=== PATIENT | female | born 2005 | race Caucasian/White ===

== ENCOUNTER 2024-03-29 14:18 | Emergency (ER) | payer BC, MEDICAID, SELFPAY ==
[2024-03-29 14:21] VITALS: BP 120/75; PULSE 119; RESP 18; TEMP 36.9; O2SAT 98; BMI 25.1
--- NOTE | 2024-03-29 14:46 | ED_ITS ---
HPI - Back Pain/Injury General: Chief Complaint: Back Pain/Injury Stated Complaint: low back pain Time Seen by Provider: 03/29/24 14:30 Source: patient Mode of arrival: ambulatory Limitations: no limitations History of Present Illness: Patient is a 18-year-old female presents to ED today with a complaint of lower back pain. She states approximately a week and a half ago she was lifting something heavy when she heard a pop to her lower back and has had discomfort since. She does report previous similar pains. She feels like her pain radiates into the back of her posterior thighs. She is ambulatory here without difficulty or assistance. She denies saddle anesthesia. She is not having any issues with fecal incontinence or urinary retention. Denies IV drug use. She has not been running fevers. MD elicited complaint: back pain Pertinent past history: prior back pain Onset (ago): day(s) Timing: constant Severity: moderate Similar Symptoms Previously: Yes Location: lumbar spine Radiation: left upper leg and right upper leg Exacerbating factors: movement, walking and lifting Relieving factors: none Associated symptoms: Reports no associated symptoms; Deny abdominal pain, chills, difficulty walking, dysuria, fatigue, fever(s) or hematuria Treatments prior to arrival: NSAIDS and acetaminophen Work related injury: No Related Data Previous Rx's Medication Instructions Recorded diclofenac sodium 50 mg 50 mg PO Q12H PRN pain #20 tabs 03/29/24 tablet,delayed release methocarbamol 500 mg tablet 1,000 mg (2 x 500 mg) PO Q8H #30 03/29/24 tabs methylprednisolone 4 mg tablets in See Rx Instructions PO .COMPLEX 03/29/24 a dose pack (Medrol (Deon)) #21 ea Allergies Allergy/AdvReac Type Severity Reaction Status Date / Time No Known Allergies Allergy Verified 03/29/24 14:24 Review of Systems Const: Denies: fever(s), chills, body aches, fatigue or malaise Card: Denies: chest pain Resp: Denies: dyspnea GI: Denies: abdominal pain : Denies: flank pain, dysuria or hematuria Musc: Reports: back pain; Denies: neck pain, extremity pain, extremity swelling, joint pain or joint swelling Skin/Breast: Denies: rash Neuro: Denies: numbness in extremities, weakness in extremities, sensory changes or difficulty walking Physical Exam Const: COMMON NORMALS: no acute distress, patient oriented x3, no limitations, alert and well nourished GENERAL APPEARANCE: cooperative ORIENTATION/CONSCIOUSNESS: Yes awake, Yes oriented to person, Yes oriented to place and Yes oriented to time GI: COMMON NORMALS: Normal to inspection, nondistended, normoactive bowel sounds present, Soft to palpation, non-tender and no masses PALPATION: Yes Soft to palpation : COMMON NORMALS: Yes no CVA tenderness BLADDER/KIDNEY EXAM: Yes no CVA tenderness Back/Pelvis: COMMON NORMALS: no CVA tenderness THORACIC SPINE/UPPER BACK: Yes thoracic ROM normal, No thoracic spinal tenderness, No paraspinal muscle tenderness and No paraspinal muscle spasm LUMBAR SPINE/LOWER BACK: Yes lumbar spinal tenderness, Yes paraspinal muscle tenderness, No paraspinal muscle spasm, No mass present and Yes straight leg raise negative bilaterally PELVIS: Yes buttocks normal and No sciatic notch tenderness SACROILIAC JOINTS: Yes SI joints normal SACRUM: no tenderness COCCYX: no tenderness Extremity: COMMON NORMALS: normal to inspection, capillary refill normal, no clubbing, cyanosis or edema, no calf tenderness and no pedal edema GENERAL: Yes normal exam except as noted Neuro: COMMON NORMALS: patient oriented x3, moves all extremities, no focal motor deficits, no sensory deficits noted and gait normal SENSORIUM/ORIENTATION: Yes alert, Yes oriented to person, Yes oriented to place and Yes oriented to time MOTOR EXAM: 5/5 motor strength present throughout Skin: COMMON NORMALS: no rashes or lesions noted GENERAL SKIN EXAM: no rashes or lesions noted Course Vital Signs: Vital signs: Vital Signs Temperature 98.4 F 03/29/24 14:21 Pulse Rate 110 H 03/29/24 14:51 Respiratory Rate 16 03/29/24 14:51 Blood Pressure 120/75 03/29/24 14:21 Pulse Oximetry 99 03/29/24 14:51 Oxygen Delivery Me thod Room Air 03/29/24 14:21 MDM - Back Pain/Injury Medical Decision Making Patient will be treated with anti-inflammatories, steroids, muscle relaxers. Recommend follow-up with primary care later this week if symptoms do not seem to be improving. Return to ED precautions given. No radiology studies performed this visit Discharge Plan Discharge Patient Disposition: Home Clinical Impression: Lumbar radiculopathy Condition: Stable Prescriptions: New methocarbamol 500 mg tablet 1,000 mg PO Q8H Qty: 30 0RF diclofenac sodium 50 mg tablet,delayed release (DR/EC) 50 mg PO Q12H PRN (Reason: pain) Qty: 20 0RF Medrol (Deon) 4 mg tablets,dose pack See Rx Instructions .ROUTE .COMPLEX Qty: 21 0RF Rx Instructions: orally per package directions Discharge Orders: Discharge ED (Routine); Ordered 03/29/24 Ordered By: Kirstin Biswas Patient Instructions: Lumbar Disc Herniation (ED), Low Back Strain (ED), Lumbar Radiculopathy (ED) Activity Restrictions/Additional Instructions: As we discussed please follow-up with your primary care provider in a week or so if symptoms do not seem to be improving. You may return to the emergency department for worsening back pain, inability to ambulate, worsening pain or numbness to your legs, inability to urinate, fecal incontinence, or any other concerns you may have. Hope you begin to feel better soon. Coding Level of Care Code ED Pharmacy Order Entry Technician for Carolann Dubon
[2024-03-29 14:51] VITALS: PULSE 110; RESP 16; O2SAT 99
[2024-03-29] MEDS: dexamethasone 10 mg/mL INJ 8 MG IM (14:59)
[2024-03-29] MEDS: ketorolac 60 mg/2 mL INJ IM (14:59)
== END 2024-03-29 15:13 | disposition home or self-care (01) ==
PROVIDERS: Emergency Provider Physician Assistant
DX: M54.16 Radiculopathy, lumbar region (principal)
CPT/HCPCS: 96372; 99284; J1100; J1885

== ENCOUNTER 2024-06-09 11:42 | Outpatient (CLI) | payer BC, SELFPAY ==
--- NOTE | 2024-06-09 11:44 | MR_ITS ---
WS: [id number] MRI LUMBAR SPINE NONCONTRAST HISTORY: LUMBAGO WITH SCIATICA COMPARISON: None available. TECHNIQUE: Sagittal and axial multisequence imaging is submitted. Normal lumbar alignment with no compression fractures or marrow edema. Mild disc desiccation at L4-5 and L5-S1. Conus terminates normally at L1-2 disc level. L1-L2: Normal. L2-L3: Mild facet arthritis. No stenosis. L3-L4: Mild facet arthritis. No stenosis. L4-L5: Large central disc protrusion with a width of 1.8 cm extends over a length of 1.1 cm. There is a deformity and displacement of the thecal sac with extension into the subarticular recesses. Displa cement of the nerve roots posteriorly. There is contact on both traversing L5 nerve roots. Only mild extension into the proximal neural foramen. Significant central with bilateral subarticular recess st enosis. Mild foraminal stenosis. L5-S1: Additional central extruded disc. There is a central disc which is extruded cephalad to the di sc level by 0.9 cm. Width of this disc is 1.1 cm. Mild deformity of the ventral thecal sac with sligh t contact on the LEFT S1 nerve root. Mild LEFT foraminal stenosis. MR/MR lumbar spine wo con* [id number] IMPRESSION: 1. L4-5: Large central and subarticular recess disc protrusion at L4-5. Deform ity and stenosis of the central canal with displacement of the traversing L5 ne rve roots. Mild foraminal stenosis at L4-5. 2. L5-S1: Moderate size central disc extrusion extends cephalad to the disc le adolfo. Mild deformity of the ventral thecal sac and slight contact on the LEFT S1 nerve root. Mild LEFT foraminal stenosis.
== END 2024-06-09 11:43 | disposition home or self-care (01) ==
LOC: RAD 11:43
PROVIDERS: PCP Family Medicine; Visit Provider Family Medicine
DX: M51.26 Other intervertebral disc displacement, lumbar region (principal); M54.30 Sciatica, unspecified side
CPT/HCPCS: 72148

== ENCOUNTER → 2024-06-24 14:49 | Outpatient (BNVA) | payer BC, MEDICAID, SELFPAY | PROVIDERS: PCP Family Medicine; Visit Provider Orthopaedic Surgery | DX: M54.9 Dorsalgia, unspecified (principal) | CPT/HCPCS: 36415; 72110; 80053; 81001; 85025 ==

== ENCOUNTER 2024-07-07 09:30 | Day surgery (SDC) | payer BC, MEDICAID, SELFPAY ==
[2024-07-07] VITALS (11 sets, daily range): BP systolic 91–107; BP diastolic 40–74; PULSE 58–79; RESP 16–18; TEMP 36.2–36.8; O2SAT 97–100; BMI 33.4
--- NOTE | 2024-07-07 06:58 | XR_ITS ---
WS: [id number] Exam: XR lumbar spine 1V [id number] Date/Time of Exam: 07/07/2024 6:58 AM Reason For Exam: or pic, decompression 2 anterior posterior images of the lower lumbar spine are submitted for evaluation. The images were o btained for preoperative localization purposes.
[2024-07-07] MEDS: sodium chloride 0.9% 1,000 ML 30 ML IV (10:20)
--- NOTE | 2024-07-07 10:35 | W.PM.OPSUD ---
Surgery/Procedure H&P Update DATE OF PROCEDURE: July 07, 2024 DATE H&P PERFORMED: 06/24/24 H&P UPDATE INFORMATION: I have reviewed H&P completed within last 30 days, I have examined patient prior to procedure and No changes to prior documentation PLANNED PROCEDURE: Operation Date: 07/07/24 11:40 Proposed Procedures p Lumbar Spine Decompression(Not Applicable) - Shaheen East DO
--- NOTE | 2024-07-07 12:03 | ANES.PREANE2 ---
Pre-Anesthetic Assessment Height/Weight: Height 1.64 m Weight 89.811 kg Temp Pulse Resp BP Pulse Ox O2 Del Method 98.2 F 70 18 98/67 100 Room Air 07/07/24 10:07 07/07/24 10:07 07/07/24 10:07 07/07/24 10:07 07/07/24 10:07 07/07/24 10:14 Operation Date: 07/07/24 11:40 Proposed Procedures p Lumbar Spine Decompression(Not Applicable) - Shaheen East, DO Familial anesthetic complications: None Was Beta Vaishnavi taken within 24 hours: N/A Was Clonidine taken within 24 hours: N/A Last intake: Intake Last Liquid Date 07/06/24 Last Liquid Time 18:00 Last Solid Date 07/06/24 Last Solid Time 18:00 Social No alcohol and No tobacco Exam alert, oriented x 3, clear to auscultation bilaterally and regular rate & rhythm Airway Mallampati: Class II Dentition: full CV/HEM Arrythmia (tachy) Anesthetic Plan ASA status: 2 Anesthesia: General Risk of > 500 ml blood loss (7ml/kg in children): No Medications/Allergies Home Medications Medication Instructions Recorded Confirmed Last Taken Type gabapentin 300 mg capsule 300 mg PO TID 06/24/24 07/06/24 07/06/24 History metoprolol tartrate 50 mg tablet 50 mg PO DAILY 06/24/24 07/06/24 07/07/24 History trazodone 50 mg tablet 100 mg (2 x 50 mg) PO .HS PRN 07/01/24 07/06/24 07/05/24 Rx insomnia #60 tabs venlafaxine 150 mg 150 mg PO DAILY #30 caps 07/01/24 07/06/24 07/06/24 Rx capsule,extended release 24 hr (Effexor XR) venlafaxine 75 mg capsule,extended 75 mg PO DAILY #30 caps 07/01/24 07/06/24 07/06/24 Rx release 24 hr (Effexor XR) Allergies Allergy/AdvReac Type Severity Reaction Status Date / Time No Known Allergies Allergy Verified 07/06/24 13:13 Current Medications Generic Name Dose Route Start Last Admin Trade Name Freq PRN Reason Stop Dose Admin Sodium Chloride 1,000 mls @ 30 mls/hr 07/07/24 10:00 07/07/24 10:20 Sodium Chloride 0.9% IV 07/08/24 09:59 30 mls/hr .Q24H KATARINA Administration PFSH Anesthesia Medical History (Updated 07/01/24 @ 14:06 by Eliot Merino MD) Psychiatric care Social History Smoking and tobacco/nicotine status: never used tobacco/nicotine Female Reproductive History Date of last menstrual period: 06/08/24 Data Anesthesia Cardiac Studies: No Data to Display
[2024-07-07] MEDS: ceFAZolin 2,000 mg SDV 2000 MG IVP (12:15)
[2024-07-07] MEDS: lidocaine-epi 1% PF 1:200,000 30 mL SDV INJECTION (12:55)
--- NOTE | 2024-07-07 14:06 | PM.OP ---
Operative Report Date of procedure: July 07, 2024 Pre-op diagnosis: 1. Left-sided lumbar 4/5 herniated disc with radiculopathy. 2. Left-sided lumbar 5/S1 herniated disc with radiculopathy Post-op diagnosis: same Procedure done: 1. L4-5 laminectomy with partial facetectomy and discectomy on the left 2. L5-S1 laminectomy with partial facetectomy and discectomy on the left Surgeon: Shaheen East DO Estimated blood loss (mL): 25 Procedure: 1. L4-5 laminectomy with partial facetectomy and discectomy on the left 2. L5-S1 laminectomy with partial facetectomy and discectomy on the left Patient is brought to the operative suite. After undergoing anesthesia they are placed in the prone position. All areas of impingement are well padded. Patient is then prepped and draped in the normal sterile fashion. A skin incision is made over the L4/5 level. This is confirmed under c-arm guidance. A series of dilators are passed and the tubular retractor is docked on the L4 lamina. A bovie is used to clear the soft tissue off the lamina and the L 4/5 facet joint. A high speed sunil is then used to perform the laminectomy and take down the medial aspect of the L 4/5 facet joint. A kerrison rongeure was then used to take down the remaining lamina and smooth the edge of the laminectomy up to the point where the ligamentum flavum attaches. Attention was then brought to the medial aspect of the facet joint. The remaining medial aspect of the superior and inferior aspect of the facet joint were taken down with the kerrison from the pedicle of L4 to L 5. The facet joint had significant hypertrophy. Attention was then brought to the Ligamentum Flavum. The ligament was taken down from the lamina of L4 to L5 and out medially to the remaining facet joint. The ligament was thick. The dura was then exposed. The dura was in good repair. The L5 nerve root was reflected medially. The disc space identified a sharp knife is used to cut open the annulus. Multiple fragments of disc were removed. The disc was irrigated multiple times more disc fragments were removed. All free fragments were felt to be removed. The L4 nerve was then traced with a curette out the L4/5 foramen and found to be adequately decompressed. The L5 nerve was traced with a curette around the L5 pedicle. The lateral recess was opened with a kerrison helping to further decompress the L5 nerve. Wound is then irrigated copiously with saline and surgiflo is used to stop any bleeding. The tubular retractor is removed A skin incision is made over the L5/S1 level. This is confirmed under c-arm guidance. A series of dilators are passed and the tubular retractor is docked on the L5 lamina. A bovie is used to clear the soft tissue off the lamina and the L 5/S1 facet joint. A high speed sunil is then used to perform the laminectomy and take down the medial aspect of the L 5/S1 facet joint. A kerrison rongeure was then used to take down the remaining lamina and smooth the edge of the laminectomy up to the point where the ligamentum flavum attaches. Attention was then brought to the medial aspect of the facet joint. The remaining medial aspect of the superior and inferior aspect of the facet joint were taken down with the kerrison from the pedicle of L5 to S1. The facet joint had significant hypertrophy. Attention was then brought to the Ligamentum Flavum. The ligament was taken down from the lamina of L5 to S1 and out medially to the remaining facet joint. The ligament was thick. The dura was then exposed. The dura was in good repair. The disc space identified a sharp knife is used to cut open the annulus. Multiple fragments of disc were removed. The disc was irrigated multiple times more disc fragments were removed. All free fragments were felt to be removed. The L5 nerve was then traced with a curette out the L5/S1 foramen and found to be adequately decompressed. The S1 nerve was traced with a curette around the S1 pedicle. The lateral recess was opened with a kerrison helping to further decompress the S1 nerve. Wound is then irrigated copiously with saline and surgiflo is used to stop any bleeding. The tubular retractor is removed and the wound is closed with vicryl and monocryl suture. Glue is then used to protect the wound. A sterile dressing is then placed. Patient was then placed in the supine position and transferred to the PACU in stable condition.
[2024-07-07] MEDS: HYDROcodone-acetaminophen 10-325 mg Tablet 1 TAB PO (15:00)
--- NOTE | 2024-07-07 15:20 | ANE.PACU2 ---
Inpatient post-anesthesia follow up: Airway intact: Yes Vital signs: Temperature 97.7 F Pulse Rate 76 Respiratory Rate 18 Blood Pressure 98/41 Pulse Oximetry 100 Oxygen Delivery Me thod Room Air Oxygen Flow Rate 8 Fraction of Inspir ed Oxygen Hydration adequate: Yes Nausea and vomiting: No Pain level: 1 Mental status: Baseline
[2024-07-08 11:03] LABS: OR HCG Qualitative Urine Negative (Negative)
== END 2024-07-07 15:20 | disposition home or self-care (01) ==
PROVIDERS: Anesthesiology; PCP Family Medicine; Visit Provider Orthopaedic Surgery
PROC: (CPT 63005; principal; 2024-07-07 11:40)
DX: M51.26 Other intervertebral disc displacement, lumbar region (principal)
CPT/HCPCS: 63030; 63035; 72020; 76000; 81025; J0690; J2250; J2704; J3010; J7030

== ENCOUNTER → 2024-07-27 11:13 | Outpatient (BNVA) | payer BC, SELFPAY | PROVIDERS: PCP Family Medicine; Visit Provider Internal Medicine Cardiovascular Disease | DX: R07.9 Chest pain, unspecified (principal); R06.02 Shortness of breath; N18.9 Chronic kidney disease, unspecified | CPT/HCPCS: 36415; 80048; 84443; 93005 ==

== ENCOUNTER 2024-08-18 22:41 | Emergency (ER) | payer BC, MEDICAID, SELFPAY ==
[2024-08-18 22:42] VITALS: BP 129/63; PULSE 89; RESP 16; TEMP 36.8; O2SAT 96; BMI 28.6
--- NOTE | 2024-08-18 22:44 | XRR_ITS ---
PROCEDURE INFORMATION: Exam: XR Right Ankle Exam date and time: 08/18/2024 10:45 PM Age: 19 years old Clinical indication: Pain; Ankle; Right; Additional info: Twisted ankle pain TECHNIQUE: Imaging protocol: Radiologic exam of the right ankle. Views: 3 or more views. COMPARISON: No relevant prior studies available. FINDINGS: Bones/joints: Os supra navicularis. Fragmentation at the dorsal aspect of the talonavicular joint, from prior injury. Soft tissues: Mild soft tissue swelling around the ankle joint. XR/XR ankle RT min 3V* [id number] IMPRESSION: No acute fracture or dislocation.
[2024-08-18 22:53] VITALS: BP 129/63; PULSE 85; O2SAT 97
--- NOTE | 2024-08-18 23:07 | W.ED.EXTPRO ---
HPI - Extremity Problem General: Chief complaint: Extremity Injury, Lower Stated complaint: ANKLE INJURY Time Seen by Provider: 08/18/24 22:44 History of Present Illness: Patient presents to the ER by EMS after stepping on a toy and twisting her ankle. Patient heard a pop. Patient says she previously sprained her ankle in the past and cannot bear weight on it currently. Patient has no other complaints at this time. Related Data Home Medications Medication Instructions Recorded Confirmed gabapentin 300 mg capsule 300 mg PO TID 06/24/24 07/27/24 Previous Rx's Medication Instructions Recorded trazodone 100 mg tablet 200 mg (2 x 100 mg) PO .HS PRN 07/22/24 insomnia #60 tabs venlafaxine 150 mg 150 mg PO DAILY #30 caps 07/22/24 capsule,extended release 24 hr (Effexor XR) venlafaxine 75 mg capsule,extended 75 mg PO DAILY #30 caps 07/22/24 release 24 hr (Effexor XR) cyclobenzaprine 5 mg tablet 5 mg PO TID #10 tabs 07/27/24 metoprolol succinate 50 mg 50 mg PO DAILY #90 tabs 07/27/24 tablet,extended release 24 hr Allergies Allergy/AdvReac Type Severity Reaction Status Date / Time No Known Allergies Allergy Verified 08/18/24 22:44 Review of Systems General: Reports: 10 or more systems reviewed and unremarkable except in HPI and below PFSH ED PFSH: Medical History Psychiatric care Surgical History History of History of back surgery Social History Smoking and tobacco/nicotine status: unknown if used tobacco/nicotine Female Reproductive History: Date of last menstrual period: 08/15/24 Physical Exam Const: COMMON NORMALS: no acute distress, average body habitus, patient oriented x3, no limitations, healthy appearing, alert and well nourished HENMT: COMMON NORMALS: normocephalic, atraumatic, hearing grossly normal bilaterally, external ears normal, Normal external nose present and moist oral mucous membranes HEAD & SCALP: normocephalic and atraumatic NOSE: Normal external nose present EXTERNAL EAR: Yes external ears normal Neck/C-Spine: COMMON NORMALS: no JVD Chest: COMMONS NORMALS: normal inspection of the chest and normal palpation of entire chest wall Resp: COMMON NORMALS: normal respiratory effort, No retractions, No use of accessory muscles and clear to auscultation bilaterally AUSCULTATION: clear to auscultation bilaterally Cardio: COMMON NORMALS: no JVD, regular rate, regular rhythm, S1 normal heart sound present, S2 normal heart sound present, No gallops present (Cardio), No clicks present (Cardio), No murmurs present (Cardio) and No rub (Cardio) RATE: regular rate RHYTHM: regular rhythm HEART SOUNDS: S1 normal heart sound present and S2 normal heart sound present GI: COMMON NORMALS: Normal to inspection, nondistended, normoactive bowel sounds present, Soft to palpation, non-tender, No hepatosplenomegaly present and no masses PALPATION: Yes Soft to palpation and Yes No hepatosplenomegaly present Extremity: NARRATIVE EXTREMITY EXAM: Right ankle minimally tender to palpation, no obvious swelling deformity crepitus noted. Neuro: COMMON NORMALS: patient oriented x3 SENSORIUM/ORIENTATION: Yes alert Course Vital Signs: Vital signs: Vital Signs Temperature 98.2 F 08/18/24 22:42 Pulse Rate 85 08/18/24 22:53 Respiratory Rate 16 08/18/24 22:42 Blood Pressure 129/63 08/18/24 22:53 Pulse Oximetry 97 08/18/24 22:53 Oxygen Delivery Co thod Room Air 08/18/24 22:53 MDM - Extremity (Nontraumatic) Medical Decision Making X-ray performed of right ankle, preliminary read by me is negative for fracture. Patient be discharged home. Medical Records I reviewed the patient's medical records. Lab Data I reviewed the patient's lab results. XR interpretation done by ED provider, pending radiology final review Discharge Plan Discharge Patient Disposition: Home Clinical Impression: Ankle sprain and strain Condition: Stable Prescriptions: No Action metoprolol succinate 50 mg tablet extended release 24 hr 50 mg PO DAILY Qty: 90 3RF gabapentin 300 mg capsule 300 mg PO TID cyclobenzaprine 5 mg tablet 5 mg PO TID Qty: 10 0RF venlafaxine [Effexor XR] 150 mg capsule,extended release 24hr 150 mg PO DAILY Qty: 30 2RF Rx Instructions: Take with a 75 mg for a total of 225 mg venlafaxine [Effexor XR] 75 mg capsule,extended release 24hr 75 mg PO DAILY Qty: 30 2RF trazodone 100 mg tablet 200 mg PO .HS PRN (Reason: insomnia) Qty: 60 2RF Discharge Orders: Discharge ED (Routine); Ordered 08/18/24 Ordered By: Bart Hale Referrals: Francis Tsang MD [Primary Care Provider] - 1 week Patient Instructions: Ankle Sprain (ED) Activity Restrictions/Additional Instructions: The preliminary read on your x-ray of your ankle in the ER was no acute fracture. When the radiologist reads it if he sees anything other than this we will call you otherwise please follow-up with your family practice physician within the next 7 days for further evaluation and treatment. Coding Level of Care Code ED Spun Paste Machine Operator for Carolann Dubon
[2024-08-18 23:25] VITALS: BP 120/60; PULSE 85; O2SAT 97
== END 2024-08-18 23:28 | disposition home or self-care (01) ==
PROVIDERS: Emergency Provider Emergency Medicine; PCP Family Medicine
DX: S93.401A Sprain of unspecified ligament of right ankle, initial encounter (principal); X58.XXXA Exposure to other specified factors, initial encounter
CPT/HCPCS: 73610; 99283; E0114

== ENCOUNTER → 2024-09-09 13:48 | Outpatient (BNVA) | payer BC, MEDICAID, SELFPAY | PROVIDERS: PCP Family Medicine; Visit Provider Podiatrist Foot & Ankle Surgery | DX: M25.571 Pain in right ankle and joints of right foot (principal); M79.671 Pain in right foot | CPT/HCPCS: 73610; 73620; 73630 ==

== ENCOUNTER 2024-09-22 14:46 | Emergency (ER) | payer BC, MEDICAID, SELFPAY ==
[2024-09-22 15:01] VITALS: BP 124/81; PULSE 83; RESP 17; TEMP 36.9; O2SAT 98; BMI 27.2
--- NOTE | 2024-09-22 15:04 | ECG_ITS ---
[facility] 2024[facility]22 Pat Name: Stacy Garcia Department: Room: Gender: Female Knitter Hand: : 2005 Requested By: Chio Aranda Order Number: [id number] MD: Laith Finney M.D. Measurements Intervals [place] Rate: 78 P: 74 IA: 146 QRS: 90 QRSD: 82 T: 25 QT: 389 QTc: 445 Interpretive Statements SINUS RHYTHM WITH SINUS ARRHYTHMIA NONSPECIFIC T-WAVE ABNORMALITY Compared to ECG 07/27/2024 11:18:22 No significant changes Electronically Signed On 09-23-2024 21:56:42 BI MANAGER by Laith Finney M.D. [email or web address]
== END 2024-09-22 18:21 | disposition left against medical advice (07) ==
PROVIDERS: Emergency Provider Family Medicine; PCP Family Medicine
DX: Z53.21 Procedure and treatment not carried out due to patient leaving prior to being seen by health care provider (principal)
CPT/HCPCS: 93005

== ENCOUNTER 2024-12-27 12:28 | Emergency (ER) | payer BC, MEDICAID, SELFPAY ==
[2024-12-27 12:29] VITALS: BP 112/59; PULSE 78; TEMP 36.7; O2SAT 98; BMI 28.2
--- NOTE | 2024-12-27 12:50 | W.ED.FEMALGU ---
HPI - Female Genitourinary General: Chief complaint: Urogenital-Female Stated complaint: abd pain, Time Seen by Provider: 12/27/24 12:31 Source: patient Mode of arrival: ambulatory Limitations: no limitations History of Present Illness: Patient is a 19-year-old female presents to ED today with UTI-like symptoms including dysuria, frequency, urgency, and cloudy/odorous urine. She states symptoms began today. She does have a history of previous UTIs and feels like her symptoms today are similar. Last UTI was a few years ago. She is not complaining of vaginal discharge or pelvic pain. Has a small amount of suprapubic and lower back discomfort. No history of kidney or ureter stones. She arrives in no acute distress with stable vital signs. MD elicited complaint: dysuria and UTI Onset (ago): hour(s) Severity: moderate Female Urogenital Radiation: Suprapubic Vaginal discharge: none Vaginal bleeding: none Urinary symptoms: Dysuria, Foul Smelling Urine, Frequency and Urgency Exacerbating factors: none and urination Relieving factors: none Associated symptoms: Reports no associated symptoms; Deny abdominal pain or nausea Patient : No Related Data Home Medications ?Medication ?Instructions ?Recorded ?Confirmed vitamin with calcium 1 tab PO DAILY 12/27/24 12/27/24 no.72-iron 27 mg-folic acid 1 mg tablet (M-Hardik Plus) venlafaxine 150 mg 150 mg PO DAILY 12/27/24 12/27/24 capsule,extended release 24 hr venlafaxine 75 mg tablet,extended 75 mg PO DAILY 12/27/24 12/27/24 release 24 hr Previous Rx's ?Medication ?Instructions ?Recorded metoprolol succinate 50 mg 50 mg PO DAILY #90 tabs 07/27/24 tablet,extended release 24 hr hydroxyzine HCl 50 mg tablet 100 mg (2 x 50 mg) PO BID PRN 12/13/24 insomnia #60 tabs prazosin 2 mg capsule 2 mg PO .HS #30 caps 12/13/24 trazodone 100 mg tablet 200 mg (2 x 100 mg) PO .HS PRN 12/13/24 insomnia #60 tabs cefdinir 300 mg capsule 300 mg PO BID 10 days #20 caps 12/27/24 Allergies Allergy/AdvReac Type Severity Reaction Status Date / Time No Known Allergies Allergy Verified 12/27/24 12:33 Review of Systems Const: Denies: fever(s), chills, body aches, fatigue or malaise Card: Denies: chest pain Resp: Denies: dyspnea GI: Denies: abdominal pain, nausea, vomiting or diarrhea : Reports: dysuria, urinary frequency and urinary urgency; Denies: flank pain, difficulty voiding, vaginal odor, vaginal bleeding or pelvic pain Musc: Reports: back pain Skin/Breast: Denies: rash PFSH ED PFSH: Medical History Psychiatric care Surgical History History of History of back surgery Social History Smoking and tobacco/nicotine status: former use of tobacco/nicotine Physical Exam Const: COMMON NORMALS: no acute distress, patient oriented x3, no limitations, alert and well nourished GENERAL APPEARANCE: cooperative Resp: COMMON NORMALS: normal respiratory effort and clear to auscultation bilaterally AUSCULTATION: clear to auscultation bilaterally Cardio: COMMON NORMALS: regular rate and regular rhythm RATE: regular rate RHYTHM: regular rhythm GI: COMMON NORMALS: Normal to inspection, nondistended, normoactive bowel sounds present, Soft to palpation, non-tender, No hepatosplenomegaly present and no masses INSPECTION: Yes normal to inspection AUSCULTATION: Yes normoactive bowel sounds PALPATION: Yes Soft to palpation, No Tenderness to palpation present (GI), No Guarding due to palpation present (GI), No Rigid due to palpation and Yes No hepatosplenomegaly present : COMMON NORMALS: Yes no CVA tenderness BLADDER/KIDNEY EXAM: Yes no CVA tenderness Back/Pelvis: COMMON NORMALS: no CVA tenderness OTHER: mild pain across lower back Neuro: COMMON NORMALS: patient oriented x3 SENSORIUM/ORIENTATION: Yes alert Course Vital Signs: Vital signs: Vital Signs Temperature 98.1 F 12/27/24 12:29 Pulse Rate 78 12/27/24 12:29 Blood Pressure 112/59 12/27/24 12:29 Pulse Oximetry 98 12/27/24 12:29 Oxygen Delivery Me thod Room Air 12/27/24 12:29 MDM - Female Medical Decision Making Patient here with complaints of dysuria, frequency, urgency, cloudy/odorous urine. She arrives in no acute distress with stable vital signs. Blood work shows a normal white count. Remainder of blood work is unremarkable. is negative. UA is consistent with acute cystitis with 2+ blood, 3+ leukocyte esterase, greater than 100 WBCs, 4+ bacteria. Will cover with antibiotics. Return to ED precautions discussed. Medical Records I reviewed the patient's medical records. Lab Data I reviewed the patient's lab results. 12/27/24 12:57 12/27/24 12:57 Laboratory Results WBC 10.22 10^3/uL (3.29-11.43) 12/27/24 12:57 RBC 4.36 10^6/uL (3.85-5.65) 12/27/24 12:57 Hgb 13.40 g/dL (11.27-16.99) 12/27/24 12:57 Hct 40.4 % (36-47) 12/27/24 12:57 MCV 92.7 fl (85-98) 12/27/24 12:57 MCH 30.7 pg (27-33) 12/27/24 12:57 MCHC 33.2 g/dL (30-55) 12/27/24 12:57 RDW 13.5 % (12.1-15.1) 12/27/24 12:57 Plt Count 303 10^3/cmm (157-399) 12/27/24 12:57 MPV 8.9 fL (7.4-10.4) 12/27/24 12:57 Neut % (Auto) 79.8 % 12/27/24 12:57 Lymph % (Auto) 13.0 % 12/27/24 12:57 [place] % (Auto) 5.7 % 12/27/24 12:57 Eos % (Auto) 0.9 % 12/27/24 12:57 Baso % (Auto) 0.3 % 12/27/24 12:57 Neut # (Auto) 8.16 10^3/uL (1.8-7.7) H 12/27/24 12:57 Lymph # (Auto) 1.3 10^3/uL (0.8-4.8) 12/27/24 12:57 [place] # (Auto) 0.6 10^3/uL (0.2-0.9) 12/27/24 12:57 Eos # (Auto) 0.1 10^3/uL (0.0-0.8) 12/27/24 12:57 Baso # (Auto) 0.0 10^3/uL (0.0-0.1) 12/27/24 12:57 Nucleated RBC % (auto) 0 % 12/27/24 12:57 Nucleated RBCs # 0.0 /100WBC 12/27/24 12:57 Sodium 141 mmol/L (136-145) 12/27/24 12:57 Potassium 4.1 mmol/L (3.5-5.1) 12/27/24 12:57 Chloride 105 mmol/L (98-107) 12/27/24 12:57 Carbon Dioxide 22 mmol/L (22-29) 12/27/24 12:57 Anion Gap 18.1 (5-19) 12/27/24 12:57 BUN 9 mg/dL (6-20) 12/27/24 12:57 Creatinine 0.5 mg/dL (0.5-0.9) 12/27/24 12:57 GFR Calculation 155.7 mL/min (90-130) H 12/27/24 12:57 Glucose 98 mg/dL (65-115) 12/27/24 12:57 Calculated Osmolality 291 mOsm/kg (285-295) 12/27/24 12:57 Calcium 9.3 mg/dL (8.5-10.5) 12/27/24 12:57 Total Bilirubin 0.3 mg/dL (0.15-1.2) 12/27/24 12:57 AST 19 U/L (0-32) 12/27/24 12:57 ALT 15 U/L (0-33) 12/27/24 12:57 Alkaline Phosphatase 113 U/L (35-105) H 12/27/24 12:57 Total Protein 7.1 g/dL (6.6-8.7) 12/27/24 12:57 Albumin 4.2 g/dL (3.5-5.2) 12/27/24 12:57 Globulin 2.9 g/dL (1.3-4.6) 12/27/24 12:57 Lipase 22 U/L (13-60) 12/27/24 12:57 HCG, Qual Negative (Negative) 12/27/24 12:57 Urine Color Yellow (Yellow) 12/27/24 12:47 Urine Appearance Clear (CLEAR) 12/27/24 12:47 Urine pH 7.0 (5-7) 12/27/24 12:47 Ur Specific [place] 1.015 (1.005-1.030) 12/27/24 12:47 Urine Protein Trace (Negative) A 12/27/24 12:47 Urine Glucose (UA) Negative (Normal) 12/27/24 12:47 Urine Ketones Negative (Negative) 12/27/24 12:47 Urine Blood 2+ (Negative) A 12/27/24 12:47 Urine Nitrate Negative (Negative) 12/27/24 12:47 Urine Bilirubin Negative (Negative) 12/27/24 12:47 Urine Urobilinogen 1.0 mg/dL (Negative) 12/27/24 12:47 Ur Leukocyte Esterase 3+ (Negative) A 12/27/24 12:47 Urine RBC 21-50 /hpf (0-2) H 12/27/24 12:47 Urine WBC >100 /hpf (0-5) H 12/27/24 12:47 Ur Squamous Epith Cells 0-5 /hpf (0-5) 12/27/24 12:47 Amorphous Sediment Not Reportable 12/27/24 12:47 Urine Bacteria 4+ /hpf (NONE) H 12/27/24 12:47 Hyaline Casts 1.65 /lpf 12/27/24 12:47 No radiology studies performed this visit Discharge Plan Discharge Patient Disposition: Home Clinical Impression: Acute cystitis with hematuria Condition: Stable Prescriptions: New cefdinir 300 mg capsule 300 mg PO BID 10 Days Qty: 20 0RF No Action metoprolol succinate 50 mg tablet extended release 24 hr 50 mg PO DAILY Qty: 90 3RF hydroxyzine HCl 50 mg tablet 100 mg PO BID PRN (Reason: insomnia) Qty: 60 2RF trazodone 100 mg tablet 200 mg PO .HS PRN (Reason: insomnia) Qty: 60 2RF prazosin 2 mg capsule 2 mg PO .HS Qty: 30 2RF venlafaxine 150 mg capsule,extended release 24hr 150 mg PO DAILY Rx Instructions: TAKE ONE CAPSULE BY MOUTH DAILY, TAKE WITH 75 MG FOR A TOTAL 225 MG venlafaxine 75 mg Tablet Extended Release 24hr 75 mg PO DAILY Rx Instructions: TAKE ONE CAPSULE BY MOUTH DAILY, TAKE WITH 150 MG FOR A TOTAL 225 MG M-Hardik Plus 27 mg iron- 1 mg tablet 1 tab PO DAILY Discharge Orders: Discharge ED (Routine); Ordered 12/27/24 Ordered By: Kirstin Biswas Referrals: Francis Tsang MD [Primary Care Provider, Family Practice] Patient Instructions: Urinary Tract Infection in Women (DC) Activity Restrictions/Additional Instructions: As we discussed, please fill your antibiotics and start them immediately. You need to seek medical re-evaluation for onset of flank pain, repetitive episodes of vomiting, inability to tolerate your antibiotics, fevers, generally feeling worse or unwell, or any other concerns you may have. Print Language: Mongolian Coding Level of Care Code ED [employer]ider for Carolann Dubon
[2024-12-27 13:01] LABS: Bilirubin Urine Negative (Negative); Blood Urine 2+ (Negative); Glucose Urine UA Negative (Normal); Ketones Urine Negative (Negative); Leukocyte Esterase Urine 3+ (Negative); Nitrate Urine Negative (Negative); Protein Urine Trace (Negative); Specific Gravity, Urine 1.015 (1.005-1.030); Urine Appearance Clear (CLEAR); Urine Color Yellow (Yellow)
[2024-12-27 13:04] LABS: Basophils % 0.3 %; Eosinophils # 0.1 10^3/uL (0.0-0.8); Eosinophils % 0.9 %; Hematocrit 40.4 % (36-47); Lymphocytes # 1.3 10^3/uL (0.8-4.8); Mean Corpuscular HGB Conc 33.2 g/dL (30-55); Mean Corpuscular Hemoglobin 30.7 pg (27-33); Mean Corpuscular Volume 92.7 fl (85-98); Mean Platelet Volume 8.9 fL (7.4-10.4); Monocytes # 0.6 10^3/uL (0.2-0.9); Monocytes % 5.7 %; Neutrophils # 8.16 10^3/uL (1.8-7.7); Neutrophils % 79.8 %; Nucleated Red Blood Cells % 0 %; Platelet Count 303 10^3/cmm (157-399); Red Blood Count 4.36 10^6/uL (3.85-5.65); Red Cell Distribution Width 13.5 % (12.1-15.1); White Blood Count 10.22 10^3/uL (3.29-11.43)
[2024-12-27 13:06] LABS: Add Urine Microscopic? YES; Bacteria Urine 4+ /hpf; Hyaline Casts Urine 1.65 /lpf; RBC Urine 21-50 /hpf (0-2); Squamous Epithelial Cell Urine 0-5 /hpf (0-5); WBC Urine >100 /hpf (0-5)
[2024-12-27 13:08] LABS: Add Urine Culture? Yes
[2024-12-27 13:27] LABS: HCG, Serum Qual Negative (Negative)
[2024-12-27 13:33] LABS: Alanine Aminotransferase 15 U/L (0-33); Albumin Level 4.2 g/dL (3.5-5.2); Alkaline Phosphatase 113 U/L (35-105); Anion Gap 18.1 (5-19); Aspartate Amino Transferase 19 U/L (0-32); Blood Urea Nitrogen 9 mg/dL (6-20); Calcium 9.3 mg/dL (8.5-10.5); Carbon Dioxide 22 mmol/L (22-29); Chloride 105 mmol/L (98-107); Creatinine Clr Calc Pharmacy 189.1831; Globulin 2.9 g/dL (1.3-4.6); Glomerular Filtration Rate 155.7 mL/min (90-130); Glucose 98 mg/dL (65-115); Lipase 22 U/L (13-60); Osmolality Calculated 291 mOsm/kg (285-295); Potassium 4.1 mmol/L (3.5-5.1); Sodium 141 mmol/L (136-145); Total Bilirubin 0.3 mg/dL (0.15-1.2); Total Protein 7.1 g/dL (6.6-8.7)
== END 2024-12-27 13:47 | disposition home or self-care (01) ==
PROVIDERS: Emergency Provider Physician Assistant; PCP Family Medicine
DX: N30.01 Acute cystitis with hematuria (principal); Z87.891 Personal history of nicotine dependence
CPT/HCPCS: 36415; 80053; 81001; 83690; 84703; 85025; 87077; 87086; 87186; 99283

== ENCOUNTER 2025-02-01 11:33 | Emergency (ER) | payer BC, MEDICAID, SELFPAY ==
--- NOTE | 2025-02-01 11:35 | XRR_ITS ---
PROCEDURE INFORMATION: Exam: XR Left Hand Exam date and time: 02/01/2025 12:05 PM Age: 19 years old Clinical indication: Injury or trauma; Other: Hurt lt ring finger; Blunt trauma (contusions or hematomas); Left TECHNIQUE: Imaging protocol: Radiologic exam of the left hand. Views: 3 or more views. COMPARISON: No relevant prior studies available. FINDINGS: Bones/joints: Bones and joint spaces within normal limits. Soft tissues: No significant pathology. XR/XR hand LT min 3V* [id number] IMPRESSION: No significant pathology.
[2025-02-01 11:50] VITALS: BP 121/80; PULSE 95; RESP 16; TEMP 37; O2SAT 95
--- NOTE | 2025-02-01 12:28 | W.ED.UPPEXIN ---
HPI - Extremity Injury (Upper) General: Chief Complaint: Extremity Injury, Upper Stated Complaint: L hand pain Time Seen by Provider: 02/01/25 12:08 Source: patient Mode of arrival: ambulatory Limitations: no limitations History of Present Illness: Patient is a 19-year-old female presents to ED today for evaluation of a left ring finger injury that she sustained just prior to arrival after her and her significant other were horsing around and her finger got caught in his shirt. complaint: injury to: left and finger Onset (ago): hour(s) Place: home Severity: moderate Relieving factors: immobilization Exacerbating factors: movement of extremity Context: fall and direct blow Associated symptoms: Reports no associated symptoms Related Data Previous Rx's ?Medication ?Instructions ?Recorded metoprolol succinate 50 mg 50 mg PO DAILY #90 tabs 07/27/24 tablet,extended release 24 hr hydroxyzine HCl 50 mg tablet 100 mg (2 x 50 mg) PO BID PRN 01/17/25 insomnia #60 tabs prazosin 2 mg capsule 2 mg PO .HS #30 caps 01/17/25 risperidone 0.5 mg tablet 0.5 mg PO BID #60 tabs 01/17/25 trazodone 100 mg tablet 200 mg (2 x 100 mg) PO .HS PRN 01/17/25 insomnia #60 tabs venlafaxine 150 mg 300 mg (2 x 150 mg) PO DAILY #60 01/17/25 capsule,extended release 24 hr caps Allergies Allergy/AdvReac Type Severity Reaction Status Date / Time No Known Allergies Allergy Verified 01/28/25 11:18 Review of Systems Musc: Reports: extremity pain (L ring finger) and extremity swelling (L ring finger) Neuro: Denies: numbness in extremities or sensory changes PFS ED PFSH: Medical History Psychiatric care Surgical History History of History of back surgery Social History Smoking and tobacco/nicotine status: former use of tobacco/nicotine Physical Exam Extremity: COMMON NORMALS: capillary refill normal GENERAL: Yes normal exam except as noted LEFT UPPER EXTREMITY: Yes hand & digits (TTP near L ring finger DIP joint; edema) Left hand and digits: Yes ROM (limited due to pain) and Yes neurovascular exam (normal) Neuro: COMMON NORMALS: moves all extremities, no focal motor deficits and no sensory deficits noted Course Vital Signs: Vital signs: Vital Signs Temperature 98.6 F 02/01/25 11:50 Pulse Rate 95 02/01/25 11:50 Respiratory Rate 16 02/01/25 11:50 Blood Pressure 121/80 02/01/25 11:50 Pulse Oximetry 95 02/01/25 11:50 Oxygen Delivery Me thod Room Air 02/01/25 11:50 MDM - Extremity Injury (Upper) Medical Decision Making XR obtained and official read is unremarkable however on personal interpretation she does have a fracture involving the distal end of her middle phalanx of her left ring finger. Patient will be splinted and will have her follow-up with ortho. Lab Data Radiology Impressions Hand X-Ray 02/01/25 11:35 IMPRESSION: No significant pathology. All radiology interpretation(s) finalized by discharge Discharge Plan Discharge Patient Disposition: Home Clinical Impression: Closed fracture of middle phalanx of left ring finger Qualifiers: Encounter type: initial encounter Fracture alignment: nondisplaced Qualified Code(s): S62.655A - Nondisplaced fracture of middle phalanx of left ring finger, initial encounter for closed fracture Condition: Stable Prescriptions: No Action metoprolol succinate 50 mg tablet extended release 24 hr 50 mg PO DAILY Qty: 90 3RF risperidone 0.5 mg tablet 0.5 mg PO BID Qty: 60 2RF hydroxyzine HCl 50 mg tablet 100 mg PO BID PRN (Reason: insomnia) Qty: 60 2RF prazosin 2 mg capsule 2 mg PO .HS Qty: 30 2RF trazodone 100 mg tablet 200 mg PO .HS PRN (Reason: insomnia) Qty: 60 2RF venlafaxine 150 mg capsule,extended release 24hr 300 mg PO DAILY Qty: 60 2RF Discharge Orders: Discharge ED (Routine); Ordered 02/01/25 Ordered By: Kirstin Biswas Referrals: Francis Tsang MD [Primary Care Provider, Family Practice] Patient Instructions: Fractures - Phalanx (Finger), Finger Fracture in Children (ED), Finger Fracture (ED) Print Language: Libyan Coding Level of Care Code ED 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
--- NOTE | 2025-02-03 07:36 | DCPLANNER ---
messaged ortho for er f/u
== END 2025-02-01 13:03 | disposition home or self-care (01) ==
PROVIDERS: Emergency Provider Physician Assistant; PCP Family Medicine
DX: S62.655A Nondisplaced fracture of middle phalanx of left ring finger, initial encounter for closed fracture (principal); Z87.891 Personal history of nicotine dependence; X58.XXXA Exposure to other specified factors, initial encounter
CPT/HCPCS: 73130; 99283

== ENCOUNTER → 2025-02-03 14:38 | Outpatient (BNVA) | payer BC, MEDICAID, SELFPAY | PROVIDERS: PCP Family Medicine; Visit Provider Orthopaedic Surgery | DX: S62.655A Nondisplaced fracture of middle phalanx of left ring finger, initial encounter for closed fracture (principal); X58.XXXA Exposure to other specified factors, initial encounter | CPT/HCPCS: 73130 ==

== ENCOUNTER → 2025-02-08 13:37 | Outpatient (BNVA) | payer BC, MEDICAID, SELFPAY | PROVIDERS: PCP Family Medicine; Visit Provider Student in an Organized Health Care Education/Training Program | DX: S62.655A Nondisplaced fracture of middle phalanx of left ring finger, initial encounter for closed fracture (principal); X58.XXXA Exposure to other specified factors, initial encounter; Y93.83 Activity, rough housing and horseplay | CPT/HCPCS: 73130 ==

== ENCOUNTER 2025-02-10 10:38 | Day surgery (SDC) | payer BC, MEDICAID, SELFPAY ==
--- NOTE | 2025-02-10 | XR_ITS ---
WS: [id number] XR finger LT min 2V [id number] REASON FOR EXAM: left ring finger middle phalanx closed reduction percutaneou FINDINGS: Long longitudinal pinning of fracture of the distal most middle phalange of the fourth finger. Surgical appliances intact and in proper position and alignment. Fracture fragment apposition is anatomic with normal DIP joint space. XR/XR finger LT min 2V [id number] IMPRESSION: Fourth finger fracture with internal fixation as above.
[2025-02-10 10:58] VITALS: BP 111/75; PULSE 73; RESP 16; TEMP 36.3; O2SAT 96
[2025-02-10 10:59] VITALS: BMI 33.7
--- NOTE | 2025-02-10 11:06 | W.PM.OPSUD ---
Surgery/Procedure H&P Update DATE OF PROCEDURE: February 10, 2025 DATE H&P PERFORMED: 02/08/25 H&P UPDATE INFORMATION: I have reviewed H&P completed within last 30 days, I have examined patient prior to procedure and No changes to prior documentation PREOP DIAGNOSIS: Left ring finger middle phalanx fracture displaced angulated PRIMARY INDICATION FOR PROCEDURE: Left ring finger middle phalanx fracture displaced angulated PLANNED PROCEDURE: Operation Date: 02/10/25 13:15 Proposed Procedures p LEFT Ring Finger Middle Phalanx Closed Reduction Percuaneous Pin Finger versus ORIF(Left) - Denny Linn DO
[2025-02-10 11:09] LABS: OR HCG Qualitative Urine Negative (Negative)
[2025-02-10] MEDS: sodium chloride 0.9% 1,000 ML 30 ML IV (11:17)
--- NOTE | 2025-02-10 11:18 | ANES.PREANE2 ---
Pre-Anesthetic Assessment Height/Weight: Height 1.65 m Weight 92.079 kg Temp Pulse Resp BP Pulse Ox O2 Del Method 97.4 F L 73 16 111/75 96 Room Air 02/10/25 10:58 02/10/25 10:58 02/10/25 10:58 02/10/25 10:58 02/10/25 10:58 02/10/25 11:00 Preop Diagnosis: Left ring finger middle phalanx fracture displaced angulated Operation Date: 02/10/25 13:15 Proposed Procedures p LEFT Ring Finger Middle Phalanx Closed Reduction Percuaneous Pin Finger versus ORIF(Left) - Denny Kern, DO Familial anesthetic complications: NOne Was Beta Vaishnavi taken within 24 hours: N/A Was Clonidine taken within 24 hours: N/A Last intake: Intake Last Liquid Date 02/09/25 Last Liquid Time 19:00 Last Solid Date 02/09/25 Last Solid Time 19:00 Social No alcohol and No tobacco Exam alert, oriented x 3, clear to auscultation bilaterally and regular rate & rhythm Airway Mallampati: Class I Dentition: full CV/HEM Arrythmia (tachy) Anesthetic Plan ASA status: 2 Anesthesia: MAC Risk of > 500 ml blood loss (7ml/kg in children): No Medications/Allergies Home Medications ?Medication ?Instructions ?Recorded ?Confirmed ?Last Taken ?Type metoprolol succinate 50 mg 50 mg PO DAILY #90 tabs 07/27/24 02/09/25 02/09/25 Rx tablet,extended release 24 hr hydroxyzine HCl 50 mg tablet 100 mg (2 x 50 mg) PO BID PRN 01/17/25 02/09/25 02/09/25 Rx insomnia #60 tabs prazosin 2 mg capsule 2 mg PO .HS #30 caps 01/17/25 02/09/25 02/09/25 Rx risperidone 0.5 mg tablet 0.5 mg PO BID #60 tabs 01/17/25 02/09/25 02/09/25 Rx trazodone 100 mg tablet 200 mg (2 x 100 mg) PO .HS PRN 01/17/25 02/09/25 02/09/25 Rx insomnia #60 tabs venlafaxine 150 mg 300 mg (2 x 150 mg) PO DAILY #60 01/17/25 02/09/25 02/09/25 Rx capsule,extended release 24 hr caps Allergies Allergy/AdvReac Type Severity Reaction Status Date / Time No Known Allergies Allergy Verified 02/10/25 11:07 Current Medications Generic Name Dose Route Start Last Admin Trade Name Freq PRN Reason Stop Dose Admin Sodium Chloride 1,000 mls @ 30 mls/hr 02/10/25 10:45 02/10/25 11:17 Sodium Chloride 0.9% IV 02/11/25 10:44 30 mls/hr .Q24H KATARINA Administration PENDING SALE TO [facility] Anesthesia Medical History Psychiatric care Surgical History History of History of back surgery Social History Smoking and tobacco/nicotine status: former use of tobacco/nicotine
[2025-02-10] MEDS: acetaminophen 1,000 MG/100 ML PIGGYBACK 400 MG IV (11:20)
[2025-02-10] MEDS: ketorolac 30 mg/mL INJ IVP (11:22)
[2025-02-10] MEDS: ceFAZolin 2,000 MG in sodium chloride 0.9% (plus) 50 ML 100 MG IV (12:37)
[2025-02-10] MEDS: lidocaine 1% 10 ML INJ XX (12:41)
[2025-02-10] MEDS: ROPivacaine 0.5% SDV 30 mL 150 MG INJECTION (12:41)
[2025-02-10 13:00] VITALS: BP 91/43; PULSE 67; RESP 16; TEMP 36.3; O2SAT 91
[2025-02-10 13:05] VITALS: BP 104/57; PULSE 79; RESP 16; O2SAT 95
--- NOTE | 2025-02-10 13:09 | W.PM.BPON ---
Date of Procedure: 02/10/2025 Surgeon: Denny Linn DO Manager Ethics(s): none Procedure(s) performed: Left ring finger middle phalanx closed reduction percutaneous pinning Findings of the procedure(s): Procedure went as planned without issues or complication Estimated blood loss: 1 mL Specimen(s) removed: None Post-operative diagnosis: Left ring finger middle phalanx fracture displaced/angulated
[2025-02-10 13:10] VITALS: BP 101/65; PULSE 72; RESP 16; O2SAT 94
--- NOTE | 2025-02-10 13:11 | PM.OP ---
Operative Report Date of procedure: February 10, 2025 Pre-op diagnosis: Displaced/angulated left ring finger middle phalanx fracture Post-op diagnosis: same Post-op findings: See operative report narrative Procedure done: Left ring finger middle phalanx closed reduction percutaneous pinning Implants: 1x 0.45 K wire Surgeon: Denny Linn DO [employer] Consultant: None Anesthesia: MAC and Local Estimated blood loss: 1 mL None IV fluids: 600 mL Urine output: None Complications: None Findings: See operative report narrative Condition: stable Disposition: same day Brief History: Patient presents the outpatient clinic pleasant 19-year-old female who sustained an injury to the left ring finger and has a left ring finger distal middle phalanx fracture this is angulated and deformed we talked about her treatment options moving forward given her young age and deformity/angulation would recommend surgical intervention with left ring finger middle phalanx closed reduction and percutaneous pinning versus open reduction internal fixation. Patient understands the ins outs procedure risk benefits complication alternatives surgery and through shared decision-making patient elects proceed with surgical intervention. All questions answered at this time. Consent was reviewed and signed with patient in the preoperative holding area. Procedure: Patient seen evaluated the preoperative holding area. Consent was reviewed and signed with patient as well as correct digit/extremity was marked. Patient was then seen evaluated by anesthesia once cleared for surgery patient was taken back to the operative suite. Patient was transported on the [facility] armboard applied to the left upper extremity. Patient then subsequently underwent anesthesia. She department once prepped anesthetized patient appropriate secured to the bed the left upper extremity was then prepped and draped in standard orthopedic fashion nonsterile tourniquet was applied prior to the left upper extremity. Final timeout performed. Patient received appropriate preoperative antibiotics. At this point time I brought in mini C arm and was able to perform a closed reduction maneuver and translate and reduce the fracture of the middle phalanx in good alignment with a concentric DIP joint. At this point while holding reduction I then advanced a 0.45 K wire in retrograde fashion in the center center position on AP and lateral films in the distal phalanx across the DIP joint and into the fracture fragment and stabilizing it of the middle phalanx. This was done in retrograde fashion I then subsequently took multiple orthogonal images as well as live fluoroscopy and confirm satisfactory reduction of the middle phalanx fracture with good alignment and correction of patient's original deformity. At this point in time this completed the procedure I then subsequently bent cut and capped the K wire pin with Edgar ball. This was then subsequently wrapped with Xeroform and the pin site this was then dressed with 4 x 4's fluffs, Louis wrap Curlex soft roll and an ulnar gutter splint applied. Patient awakened from anesthesia and taken back to recovery in stable condition. Disposition: Patient taken recovery in stable condition ulnar gutter splint on in place will maintain until follow-up received appropriate discharge instructions pain medication postoperatively will follow-up in 2 weeks. All questions answered at this time.
--- NOTE | 2025-02-10 13:14 | PM.PACU ---
PACU note Narrative: Patient is a 19-year-old female that just underwent a left finger phalanx fracture pinning. Patient transferred to PACU in stable condition. Pain is well controlled. Dressing and splint on hand is dry and in place. Patient's fingers are warm and well-perfused. Patient can wiggle fingers. normal cap refill under 2 seconds. Patient has normal elbow range of motion. Sensation of fingers intact. Exam: awake Disposition: discharged
[2025-02-10 13:15] VITALS: BP 108/74; BP 110/73; PULSE 70; PULSE 77; RESP 16; TEMP 36.3; TEMP 36.4; O2SAT 94; O2SAT 96
[2025-02-10 13:34] VITALS: BP 104/71; PULSE 71; RESP 16; O2SAT 97
--- NOTE | 2025-02-10 13:55 | ANE.PACU2 ---
Inpatient post-anesthesia follow up: Airway intact: Yes Vital signs: Temperature 97.6 F Pulse Rate 71 Respiratory Rate 16 Blood Pressure 104/71 Pulse Oximetry 97 Oxygen Delivery Me thod Room Air Oxygen Flow Rate Fraction of Inspir ed Oxygen Hydration adequate: Yes Nausea and vomiting: No Pain level: 1 Mental status: Baseline
== END 2025-02-10 13:55 | disposition home or self-care (01) ==
PROVIDERS: Anesthesiology; PCP Family Medicine; Visit Provider Student in an Organized Health Care Education/Training Program
PROC: (CPT 26432; principal; 2025-02-10 13:05)
DX: S62.625A Displaced fracture of middle phalanx of left ring finger, initial encounter for closed fracture (principal); X50.1XXA Overexertion from prolonged static or awkward postures, initial encounter; I49.9 Cardiac arrhythmia, unspecified; Z87.891 Personal history of nicotine dependence
CPT/HCPCS: 26725; 73140; 76000; 81025; C1713; J0131; J0690; J1885; J2250; J2704; J2795; J3010; J7030; J9999

== ENCOUNTER → 2025-02-15 14:25 | Outpatient (BNVA) | payer BC, MEDICAID, SELFPAY | PROVIDERS: PCP Family Medicine; Visit Provider Family Medicine | DX: R21 Rash and other nonspecific skin eruption (principal) | CPT/HCPCS: 80053; 85025; 86038; 86140; 86200; 86431 ==

== ENCOUNTER → 2025-02-23 13:04 | Outpatient (BNVA) | payer BC, MEDICAID, SELFPAY | PROVIDERS: PCP Family Medicine; Visit Provider Family Medicine | DX: Z76.89 Persons encountering health services in other specified circumstances (principal); M79.671 Pain in right foot | CPT/HCPCS: 85025; 85651; 86038 ==

== ENCOUNTER → 2025-03-01 15:16 | Outpatient (BNVA) | payer BC, SELFPAY | PROVIDERS: PCP Family Medicine; Visit Provider Physician Assistant | DX: Z98.890 Other specified postprocedural states (principal); S62.655D Nondisplaced fracture of middle phalanx of left ring finger, subsequent encounter for fracture with routine healing; X58.XXXD Exposure to other specified factors, subsequent encounter | CPT/HCPCS: 73130 ==

== ENCOUNTER → 2025-03-10 09:22 | Outpatient (BNVA) | payer BC, SELFPAY | PROVIDERS: PCP Family Medicine; Visit Provider Nurse Practitioner | DX: N39.0 Urinary tract infection, site not specified (principal) | CPT/HCPCS: 81000; 84300; 87077; 87086; 87184 ==

== ENCOUNTER → 2025-03-15 14:52 | Outpatient (BNVA) | payer BC, MEDICAID, SELFPAY | PROVIDERS: PCP Family Medicine; Visit Provider Physician Assistant | DX: Z98.890 Other specified postprocedural states (principal); S62.655D Nondisplaced fracture of middle phalanx of left ring finger, subsequent encounter for fracture with routine healing; X58.XXXD Exposure to other specified factors, subsequent encounter | CPT/HCPCS: 73130 ==

== ENCOUNTER → 2025-03-25 09:12 | Outpatient (BNVA) | payer BC, MEDICAID, SELFPAY | PROVIDERS: PCP Family Medicine; Visit Provider Family Medicine | DX: Z01.419 Encounter for gynecological examination (general) (routine) without abnormal findings (principal); Z11.3 Encounter for screening for infections with a predominantly sexual mode of transmission; N92.6 Irregular menstruation, unspecified | CPT/HCPCS: 81025; 81513; 87481; 87491; 87591; 87661; 88175 ==

== ENCOUNTER → 2025-05-18 12:03 | Outpatient (BNVA) | payer BC, SELFPAY | PROVIDERS: PCP Family Medicine; Visit Provider Nurse Practitioner | DX: R30.0 Dysuria (principal) | CPT/HCPCS: 81000 ==

== ENCOUNTER → 2025-05-23 10:25 | Outpatient (BNVA) | payer BC, SELFPAY | PROVIDERS: PCP Family Medicine; Referring Provider Family Medicine; Visit Provider Internal Medicine Rheumatology | DX: M25.50 Pain in unspecified joint (principal) | CPT/HCPCS: 36415; 80076; 82306; 82565; 83520; 85025; 85651; 86140; 86160; 86162; 86200; 86235; 86255; 86376; 86431; 86480; 86704; 86803; 87340 ==

== ENCOUNTER → 2025-06-09 11:04 | Outpatient (BNVA) | payer BC, SELFPAY | PROVIDERS: PCP Family Medicine; Visit Provider Family Medicine | DX: N92.6 Irregular menstruation, unspecified (principal) | CPT/HCPCS: 81025 ==

== ENCOUNTER → 2025-06-30 10:56 | Outpatient (BNVA) | payer BC, SELFPAY | PROVIDERS: PCP Family Medicine; Visit Provider Emergency Medicine | DX: R39.9 Unspecified symptoms and signs involving the genitourinary system (principal) | CPT/HCPCS: 81000; 87086 ==